=== PATIENT | male | born 1950 | race Caucasian/White ===

== ENCOUNTER → 2016-05-13 | Outpatient (CLI) | payer MEDICARE ==
[~2016-05-13] MED LIST: ACETAMINOPHEN325 MG PO; ASPIRIN81 M2 PO; NITROSTAT0.4 MG SL; SIMVASTATIN40 MG PO; [UNRECOGNIZED DRUG - OTHER] PO
--- NOTE | ~2016-05-13 | US6 ---
[facility] A Service of [facility] RADIOLOGY TEXT RESULTS PATIENT: RYLIE BELLO LOCATION: [facility] : 50 UNIT #: [id number] AGE: [address]: GUILLERMINA GIANG SEX: M ORDER DR: [id number] [place] [id number] O MR#: [id number] Acc #: [id number] NAME: RYLIE BELLO : 1950 SEX: M STUDY DATE/TIME: 05/13/2016 8:37 UNIT: [facility] ROOM: STUDY DESCRIPTION: US Abdominal Limited Attending Physician: Guillermina Giang Aprn Referring Physician: Guillermina Giang Aprn Ordering Physician: Guillermina Giang Aprn Primary Care Physician: Adalid Steele M.D. MEDICAL IMAGING REPORT This report is preliminary unless electronic signature is present. EXAM Abdominal ultrasound HISTORY Colicky right upper quadrant abdominal pain TECHNIQUE Henriquez scale and color Doppler sonographic images were obtained through the right upper quadrant. FINDINGS There is limited visualization of the pancreas. The liver appears unremarkable. It is homogeneous in echotexture. No focal hepatic lesions are seen. There is no intra or extrahepatic biliary dilatation. The right kidney is normal in appearance with no solid or cystic renal masses seen. No hydronephrosis is identified. The patient's gallbladder also appears unremarkable with no stones or sludge seen and no gallbladder wall thickening or pericholecystic fluid identified. IMPRESSION No acute findings. Please note pancreas cannot be well seen on these images. Dictated by... Merissa Monroe M.D. THIS IS AN ELECTRONICALLY VERIFIED REPORT Merissa Monroe M.D. at 05/13/2016 4:38 PM AFF/ea [facility] A Service [facility] RADIOLOGY TEXT RESULTS PATIENT: RYLIE BELLO LOCATION: [facility] : 50 UNIT #: [id number] AGE: [address]: GUILLERMINA GIANG SEX: M ORDER DR: TD: 05/13/2016 13:08 JOB #: [id number] MEDICAL IMAGING REPORT Page 1 of 1
== END | disposition home or self-care (01) ==
LOC: SGUS 07:57
DX: R10.11 Right upper quadrant pain (principal)
CPT/HCPCS: 76705

== ENCOUNTER → 2016-05-21 | Outpatient (CLI) | payer MEDICARE ==
--- NOTE | ~2016-05-21 | CT7 ---
[facility] A Service of [facility] RADIOLOGY TEXT RESULTS PATIENT: RYLIE BELLO LOCATION: [facility] : 50 UNIT #: [id number] AGE: [address]: GUILLERMINA GIANG SEX: M ORDER DR: [id number] [place] [id number] O MR#: [id number] Acc #: [id number] NAME: RYLIE BELLO : 1950 SEX: M STUDY DATE/TIME: 05/21/2016 13:49 UNIT: [facility] ROOM: STUDY DESCRIPTION: CT Abdomen Wo Cont Attending Physician: Guillermina Giang Aprn Referring Physician: Guillermina Giang Aprn Ordering Physician: Guillermina Giang Aprn Primary Care Physician: Adalid Steele M.D. MEDICAL IMAGING REPORT This report is preliminary unless electronic signature is present. EXAM CT abdomen without contrast. INDICATION Right upper quadrant abdominal pain off and on for the past several years. PROCEDURE Unenhanced CT of the abdomen and pelvis. This CT exam was performed with one or more of the following radiation dose reduction techniques: automatic exposure control, adjustment of mA and/or kV according to patient size, and iterative reconstruction. COMPARISON None FINDINGS ABDOMEN WITHOUT CONTRAST: Included lung bases are clear. The liver, spleen, kidneys, adrenal glands, pancreas, gallbladder have an unremarkable appearance. The bowel loops are nondilated. No aggressive appearing bone lesions. IMPRESSION No acute findings in the abdomen. Dictated by... Chris Villegas M.D. THIS IS AN ELECTRONICALLY VERIFIED REPORT [facility] A Service of [facility] RADIOLOGY TEXT RESULTS PATIENT: RYLIE BELLO LOCATION: [facility] : 50 UNIT #: [id number] AGE: [address]: GUILLERMINA GIANG SEX: M ORDER DR: Chris Villegas M.D. at 05/21/2016 4:51 PM EED/lg TD: 05/21/2016 16:18 JOB #: [id number] MEDICAL IMAGING REPORT Page 1 of 1
== END | disposition home or self-care (01) ==
LOC: SCT 13:19
DX: R10.11 Right upper quadrant pain (principal)
CPT/HCPCS: 74150